=== PATIENT | female | born 1980 | race African-American/Black ===

== ENCOUNTER → 2016-03-30 | Outpatient (CLI) | payer OTHER ==
[2016-03-30 12:32] LABS: ABSOLUTE EOSINOPHILS # (AUTO) 0.1 10^3/uL (0.0-0.6); ABSOLUTE LYMPHOCYTES (AUTO) 2.1 10^3/uL (0.5-4.7); ABSOLUTE MONOCYTES (AUTO) 0.4 10^3/uL (0.1-1.4); ABSOLUTE NEUT (AUTO) 1.5 10^3/uL (1.7-8.2); BASOPHILS % (AUTO) 0.5 % (0-2); EOSINOPHILS % (AUTO) 3.3 % (0-6); HEMATOCRIT 39.7 % (36.0-47.0); HEMOGLOBIN 13.1 g/dL (12.0-15.5); HGB HCT DIFFERENCE -0.4; LYMPHOCYTES % (AUTO) 51.7 % (13-45); MEAN CORPUSCULAR HEMOGLOBIN 30.9 pg (27.0-33.4); MEAN CORPUSCULAR HGB CONC 33.1 g/dL (32.0-36.0); MEAN CORPUSCULAR VOLUME 93 fl (80-97); MONOCYTES % (AUTO) 8.9 % (3-13); RED BLOOD COUNT 4.26 10^6/uL (3.72-5.28); RED CELL DISTRIBUTION WIDTH 13.3 % (11.5-14.0); SEGMENTED NEUTROPHILS % (AUTO) 35.6 % (42-78); WHITE BLOOD COUNT 4.1 10^3/uL (4.0-10.5)
[2016-03-30 13:02] LABS: ALANINE AMINOTRANSFERASE 22 U/L (9-52); ALBUMIN 4.3 g/dL (3.5-5.0); ALKALINE PHOSPHATASE 56 U/L (38-126); ANION GAP 6 (5-19); ASPARTATE AMINO TRANSFERASE 19 U/L (14-36); BILIRUBIN,TOTAL 0.4 mg/dL (0.2-1.3); BLOOD UREA NITROGEN 10 mg/dL (7-20); CALCIUM 9.4 mg/dL (8.4-10.2); CARBON DIOXIDE 33 mmol/L (22-30); CHLORIDE 101 mmol/L (98-107); CHOLESTEROL 139.96 mg/dL (0-200); CREATININE RESULT 0.97 mg/dL (0.52-1.25); Direct HDL 61 mg/dL (>40); GLUCOSE 86 mg/dL (75-110); POTASSIUM 4.2 mmol/L (3.6-5.0); SODIUM 139.6 mmol/L (137-145); TOTAL PROTEIN 7.5 g/dL (6.3-8.2); TRIGLYCERIDES 86 mg/dL (<150)
[2016-03-30 13:14] LABS: DIRECT LDL 52 mg/dL (<100)
== END ==
LOC: OD 11:43
PROVIDERS: ATTEND Nurse Practitioner Family
DX: R53.83 Other fatigue (principal); E03.9 Hypothyroidism, unspecified; E55.9 Vitamin D deficiency, unspecified
CPT/HCPCS: 36415; 80053; 80061; 82306; 82607; 84443; 85025

== ENCOUNTER → 2016-07-18 | Outpatient (CLI) | payer OTHER ==
--- NOTE | 2016-07-18 10:18 | WOMENS IMAGING REPORT ---
EXAM DESCRIPTION: U/S THYROID/ST TIS HEAD NECK COMPLETED DATE/TIME: 07/18/2016 9:43 am REASON FOR STUDY: U/S THYROID COMPARISON: 07/11/2012, 05/12/2014, 09/09/2015 TECHNIQUE: Dynamic and static tolbert-scale images acquired of the thyroid gland. Selected additional c olor/power Doppler images recorded. All images stored to PACS. LIMITATIONS: None. FINDINGS: RIGHT LOBE: 2 x 0.8 x 0.7 cm in size with heterogeneous echotexture and a 5 mm hypoechoi c nodule along the posterior aspect of the midpole gland. Along the lower pole of the gland, a 6 x 3 mm lymph node is present unchanged. LEFT LOBE: 2 x 0.8 x 0.8 cm in size with heterogeneous echotexture and a 10 x 6 x 5 mm nodule with calcification. Consider fine-needle aspirate of this nodule. ISTHMUS: Normal size. Homogeneous echotexture. No cystic or solid masses. OTHER: No other significant finding. IMPRESSION: Diffusely small heterogeneous thyroid from chronic thyroiditis. 10 x 6 mm complex cyst versus nodule in the left lobe thyroid, fine-needle aspirate should be conside red TECHNICAL DOCUMENTATION: JOB ID: [id number] [employer]- All Rights Reserved
== END ==
LOC: WI 08:10
PROVIDERS: ATTEND Nurse Practitioner Family
DX: E03.9 Hypothyroidism, unspecified (principal); E06.5 Other chronic thyroiditis
CPT/HCPCS: 76536

== ENCOUNTER → 2016-08-16 | Outpatient (CLI) | payer OTHER ==
[2016-08-16 13:53] LABS: BLOOD UREA NITROGEN 7 mg/dL (7-20); CREATININE RESULT 0.82 mg/dL (0.52-1.25); URIC ACID 2.6 mg/dL (2.5-6.2)
[2016-08-16 14:05] LABS: FREE T3 6.56 pg/mL (2.77-5.27)
[2016-08-16 14:19] LABS: THYROID STIMULATING HORMONE 0.04 uIU/mL (0.47-4.68)
== END ==
LOC: CCC 12:05
DX: E88.3 Tumor lysis syndrome (principal); E03.9 Hypothyroidism, unspecified
CPT/HCPCS: 36415; 82565; 84439; 84443; 84481; 84520; 84550

== ENCOUNTER → 2016-08-26 | Outpatient (CLI) | payer OTHER ==
[2016-08-26 10:49] LABS: ABSOLUTE EOSINOPHILS # (AUTO) 0.1 10^3/uL (0.0-0.6); ABSOLUTE LYMPHOCYTES (AUTO) 2.2 10^3/uL (0.5-4.7); ABSOLUTE MONOCYTES (AUTO) 0.6 10^3/uL (0.1-1.4); BASOPHILS % (AUTO) 0.7 % (0-2); EOSINOPHILS % (AUTO) 2.4 % (0-6); HEMATOCRIT 36.6 % (36.0-47.0); HEMOGLOBIN 12.1 g/dL (12.0-15.5); HGB HCT DIFFERENCE -0.3; LYMPHOCYTES % (AUTO) 56.1 % (13-45); MEAN CORPUSCULAR HEMOGLOBIN 30.4 pg (27.0-33.4); MEAN CORPUSCULAR HGB CONC 33.1 g/dL (32.0-36.0); MEAN CORPUSCULAR VOLUME 92 fl (80-97); MONOCYTES % (AUTO) 14.3 % (3-13); RED BLOOD COUNT 3.98 10^6/uL (3.72-5.28); RED CELL DISTRIBUTION WIDTH 12.5 % (11.5-14.0); SEGMENTED NEUTROPHILS % (AUTO) 26.5 % (42-78); WHITE BLOOD COUNT 3.9 10^3/uL (4.0-10.5)
[2016-08-26 11:08] LABS: ALANINE AMINOTRANSFERASE 30 U/L (9-52); ALBUMIN 3.7 g/dL (3.5-5.0); ALKALINE PHOSPHATASE 57 U/L (38-126); ANION GAP 8 (5-19); ASPARTATE AMINO TRANSFERASE 20 U/L (14-36); BILIRUBIN,DIRECT 0.3 mg/dL (0.0-0.4); BILIRUBIN,TOTAL 0.5 mg/dL (0.2-1.3); BLOOD UREA NITROGEN 8 mg/dL (7-20); CALCIUM 9.2 mg/dL (8.4-10.2); CARBON DIOXIDE 28 mmol/L (22-30); CHLORIDE 106 mmol/L (98-107); CREATININE RESULT 0.88 mg/dL (0.52-1.25); GLUCOSE 82 mg/dL (75-110); POTASSIUM 4.1 mmol/L (3.6-5.0); SODIUM 142.3 mmol/L (137-145); TOTAL PROTEIN 7.1 g/dL (6.3-8.2)
[2016-08-26 12:14] LABS: FOLATE 6.02 ng/mL (>2.76)
== END ==
LOC: CCC 10:06
DX: D64.9 Anemia, unspecified (principal)
CPT/HCPCS: 36415; 80053; 82607; 82728; 82746; 83540; 83550; 84443; 85025

== ENCOUNTER → 2016-12-14 | Day surgery (SDC) | payer OTHER ==
--- NOTE | 2016-12-14 16:05 | RADIOLOGY REPORT (SQ) ---
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 TECHNIQUE: Limited sonographic images acquired of the thyroid gland. All images stored to PACS. LIMITATIONS: None. FINDINGS: Sonographic images of the left lobe demonstrate a circumscribed hypoechoic nodule measurin g 3 x 5 mm. This has smooth circumscribed borders. Repeat measurement of the nodule on the previous ultrasound in July 2016 demonstrated maximum measurement of 7 mm, not 10 mm. Review of prior ultras ounds dating back to 2012 demonstrates similar appearance and measurement with no significant change. Given the stability of this nodule, the biopsy will not be performed at this time. IMPRESSION: STABLE SMALL NODULE IN THE LEFT LOBE OF THE THYROID. RECOMMEND FOLLOW-UP ULTRASOUND OF THE ENTIRE THYROID IN 6-8 MONTHS FOR RE-EVALUATION AND TO CONFIRM CONTINUED STABILITY. TECHNICAL DOCUMENTATION: JOB ID: [id number] [employer]- All Rights Reserved
== END ==
LOC: RAD 14:34
PROVIDERS: ATTEND Otolaryngology
DX: E05.20 Thyrotoxicosis with toxic multinodular goiter without thyrotoxic crisis or storm (principal)
CPT/HCPCS: 76536

== ENCOUNTER → 2017-07-10 | Outpatient (CLI) | payer OTHER ==
[2017-07-10 14:40] LABS: ABSOLUTE EOSINOPHILS # (AUTO) 0.1 10^3/uL (0.0-0.6); ABSOLUTE LYMPHOCYTES (AUTO) 1.6 10^3/uL (0.5-4.7); ABSOLUTE MONOCYTES (AUTO) 0.5 10^3/uL (0.1-1.4); HEMOGLOBIN 12.3 g/dL (12.0-15.5); TOTAL CELLS COUNTED % (AUTO) 100 %
[2017-07-10 14:49] LABS: ALANINE AMINOTRANSFERASE 19 U/L (9-52); ALKALINE PHOSPHATASE 55 U/L (38-126); ANION GAP 10 (5-19); ASPARTATE AMINO TRANSFERASE 20 U/L (14-36); BILIRUBIN,DIRECT 0.3 mg/dL (0.0-0.4); BILIRUBIN,TOTAL 0.6 mg/dL (0.2-1.3); BLOOD UREA NITROGEN 7 mg/dL (7-20); CALCIUM 9.4 mg/dL (8.4-10.2); CARBON DIOXIDE 26 mmol/L (22-30); CHLORIDE 105 mmol/L (98-107); CHOLESTEROL 137.25 mg/dL (0-200); GLUCOSE 88 mg/dL (75-110); POTASSIUM 4.1 mmol/L (3.6-5.0); SODIUM 141.3 mmol/L (137-145); TOTAL PROTEIN 7.2 g/dL (6.3-8.2); TRIGLYCERIDES 65 mg/dL (<150); URIC ACID 2.8 mg/dL (2.5-7.0)
[2017-07-10 15:00] LABS: ABSOLUTE NEUT (AUTO) 3.2 10^3/uL (1.7-8.2); BASOPHILS % (AUTO) 0.3 % (0-2); DIRECT LDL 60 mg/dL (<100); EOSINOPHILS % (AUTO) 1.3 % (0-6); HEMATOCRIT 37.1 % (36.0-47.0); LYMPHOCYTES % (AUTO) 29.4 % (13-45); MEAN CORPUSCULAR HEMOGLOBIN 30.5 pg (27.0-33.4); MEAN CORPUSCULAR HGB CONC 33.2 g/dL (32.0-36.0); MEAN CORPUSCULAR VOLUME 92 fl (80-97); MONOCYTES % (AUTO) 9.5 % (3-13); PLATELET COUNT 205 10^3/uL (150-450); RED BLOOD COUNT 4.04 10^6/uL (3.72-5.28); SEGMENTED NEUTROPHILS % (AUTO) 59.5 % (42-78); WHITE BLOOD COUNT 5.4 10^3/uL (4.0-10.5)
[2017-07-10 15:03] LABS: FREE T4 (FREE THYROXINE) 2.29 ng/dL (0.78-2.19)
[2017-07-10 15:17] LABS: THYROID STIMULATING HORMONE 0.04 uIU/mL (0.47-4.68)
== END ==
LOC: CCC 12:45
DX: D35.2 Benign neoplasm of pituitary gland (principal); E06.3 Autoimmune thyroiditis; E03.9 Hypothyroidism, unspecified
CPT/HCPCS: 36415; 80053; 80061; 83036; 84439; 84443; 84550; 85025

== ENCOUNTER → 2017-07-30 | Outpatient (CLI) | payer OTHER ==
--- NOTE | 2017-07-30 17:12 | RADIOLOGY REPORT (SQ) ---
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 Images stored on PACS. Additional thin section coronal and sagittal T2, T1 precontrast, T1 postcontrast images through the p ituitary fossa were obtained. CONTRAST TYPE AND DOSE: 15 mL ProHance gadolinium RENAL FUNCTION: None required. The patient is less than 50 years old. LIMITATIONS: None. FINDINGS: PITUITARY FOSSA: The pituitary gland is 12 x 6 x 15 mm in size. In the inferior aspect of the anterior lobe pituitary to the left of midline, a 4 mm well-circumscribed focus of bright T2 and decreased T1 weighted signal is present, with avid contrast enhancement likely a small microadenoma. This is similar compared to 09/02/2015 and smaller than on 05/12/2014. Pituitary infundibulum, optic chiasm, suprasellar cistern, cavernous sinuses are unremarkable. CSF SPACES: Normal in size and contour. No hemorrhage. CEREBRUM: Sulci and gyri normal in size and contour. Normal white matter signal on FLAIR imaging. No evidence of hemorrhage, mass, or extraaxial fluid collection. No abnormal enhancement post contrast. POSTERIOR FOSSA: No signal alteration. No hemorrhage. No edema, masses, or mass effect. Internal yomaira tory canals, cerebellopontine angles, mastoids normal. No enhancing lesions. No abnormal enhancement post contrast. DIFFUSION IMAGING: Negative for acute or subacute infarction. ORBITS: No masses. Globes normal. PARANASAL SINUSES: No fluid levels. Mucosa normal. OTHER: No other significant finding. IMPRESSION: Tiny nodule anterior lobe pituitary gland compatible with small at adenoma. This is sta ble compared to 2015, and smaller than in 2014. Remainder of the brain parenchyma is otherwise unremarkable. EVIDENCE OF ACUTE STROKE: NO. TECHNICAL DOCUMENTATION: JOB ID: [id number] [employer]- All Rights Reserved Reading location - IP/workstation name: [email or web address]
== END ==
LOC: RAD 09:20
DX: D35.2 Benign neoplasm of pituitary gland (principal)
CPT/HCPCS: 82565; 70553; A9576

== ENCOUNTER → 2020-02-23 | Outpatient (CLI) | payer OTHER ==
[2020-02-23 16:38] LABS: ABSOLUTE EOSINOPHILS # (AUTO) 0.1 10^3/uL (0.0-0.6); ABSOLUTE LYMPHOCYTES (AUTO) 2.2 10^3/uL (0.5-4.7); ABSOLUTE MONOCYTES (AUTO) 0.4 10^3/uL (0.1-1.4); ABSOLUTE NEUT (AUTO) 2.3 10^3/uL (1.7-8.2); BASOPHILS % (AUTO) 0.3 % (0-2); EOSINOPHILS % (AUTO) 2.1 % (0-6); HEMATOCRIT 35.4 % (36.0-47.0); LYMPHOCYTES % (AUTO) 43.4 % (13-45); MEAN CORPUSCULAR HEMOGLOBIN 31.7 pg (27.0-33.4); MEAN CORPUSCULAR HGB CONC 33.8 g/dL (32.0-36.0); MEAN CORPUSCULAR VOLUME 94 fl (80-97); MONOCYTES % (AUTO) 7.9 % (3-13); PLATELET COUNT 175 10^3/uL (150-450); RED BLOOD COUNT 3.77 10^6/uL (3.72-5.28); RED CELL DISTRIBUTION WIDTH 13.7 % (11.5-14.0); SEGMENTED NEUTROPHILS % (AUTO) 46.3 % (42-78); TOTAL CELLS COUNTED % (AUTO) 100 %; WHITE BLOOD COUNT 5.1 10^3/uL (4.0-10.5)
[2020-02-23 16:49] LABS: ALBUMIN 4.1 g/dL (3.5-5.0); ALKALINE PHOSPHATASE 49 U/L (38-126); ANION GAP 6 (5-19); ASPARTATE AMINO TRANSFERASE 23 U/L (14-36); BILIRUBIN,DIRECT 0.2 mg/dL (0.0-0.4); BILIRUBIN,TOTAL 0.3 mg/dL (0.2-1.3); BLOOD UREA NITROGEN 9 mg/dL (7-20); CALCIUM 9.2 mg/dL (8.4-10.2); CARBON DIOXIDE 27 mmol/L (22-30); CHLORIDE 105 mmol/L (98-107); GLUCOSE 82 mg/dL (75-110); POTASSIUM 4.3 mmol/L (3.6-5.0); TOTAL PROTEIN 7.2 g/dL (6.3-8.2); TRIGLYCERIDES 105 mg/dL (<150)
[2020-02-23 16:59] LABS: DIRECT LDL 69 mg/dL (<100)
[2020-02-23 17:05] LABS: FREE T3 2.49 pg/mL (2.77-5.27); FREE T4 (FREE THYROXINE) 0.82 ng/dL (0.78-2.19)
[2020-02-23 17:19] LABS: THYROID STIMULATING HORMONE 25.9 uIU/mL (0.47-4.68)
[2020-02-25 15:14] LABS: FOLLICLE STIMULATING HORMONE 1.4 mIU/mL (.); PROLACTIN 30.7 ng/mL (4.8-23.3)
== END ==
LOC: OD 15:13
PROVIDERS: ATTEND Family Medicine
DX: E03.9 Hypothyroidism, unspecified (principal); D35.2 Benign neoplasm of pituitary gland
CPT/HCPCS: 36415; 80053; 80061; 82533; 83001; 84146; 84439; 84443; 84481; 85025